=== PATIENT | male | born 2000 | race Two or more races ===

== ENCOUNTER 2022-02-09 06:10 | Emergency (ER) | payer BC, OTHER ==
[~2022-02-09] VITALS: Ht 170.2 cm; Wt 77.1 kg
[2022-02-09] MEDS ORDERED: ONDANSETRON 4 MG TAB.RAPDIS SL ONE (06:30)
[2022-02-09] MEDS ORDERED: ONDANSETRON 4 MG TAB.RAPDIS ONE (06:34)
--- NOTE | 2022-02-09 06:39 | NUR ---
[id number] C/O N/V X ONE NIGHT AFTER EATING [employer] DAVE. PT AWAKE AND ALERT BREATHING EVEN AND UNLABORED. ALL V/S WNL.
--- NOTE | 2022-02-09 06:40 | NUR ---
DR. LAW MARCOS AT PT'S BEDSIDE
[2022-02-09] MEDS ORDERED: ONDANSETRON HCL/PF 4 MG/2 ML VIAL ONE (06:50)
[2022-02-09] MEDS ORDERED: KETOROLAC TROMETHAMINE 15 MG/ML VIAL ONE (06:50)
--- NOTE | 2022-02-09 06:58 | NUR ---
DRUG ENFORCEMENT AGENT AT PT'S BEDSIDE
[2022-02-09] MEDS ORDERED: KETOROLAC TROMETHAMINE INJ 30 MG/ML VIAL IV ONE (07:00)
[2022-02-09] MEDS ORDERED: ONDANSETRON HCL/PF 4 MG/2 ML VIAL IVP ONE (07:00)
[2022-02-09] MEDS ORDERED: IV NS 0.9% 1,000 ML BAG IV ONE (07:00)
[2022-02-09 07:01] LABS: BASOPHILS % (AUTO) 0.2 % (0.0-2.0); EOSINOPHILS % (AUTO) 0.1 % (0.0-6.0); HEMATOCRIT 45 % (39-51); HEMOGLOBIN 15.4 g/dL (13.5-17.5); LYMPHOCYTES # (AUTO) 0.4 K/uL (0.8-4.8); LYMPHOCYTES % (AUTO) 2.3 % (20.0-44.0); MEAN CORPUSCULAR HGB CONC 34 g/dl (31.0-36.0); MEAN CORPUSCULAR VOLUME 88 fL (80-96); MONOCYTES # (AUTO) 0.5 K/uL (0.1-1.30); MONOCYTES % (AUTO) 2.8 % (2.0-12.0); NEUTROPHILS # (AUTO) 15.9 K/uL (1.8-8.9); NEUTROPHILS % (AUTO) 94.6 % (43.0-81.0); PLATELET COUNT (AUTO) 279 K/uL (150-450); RED BLOOD CELL COUNT(AUTO) 5.17 MIL/uL (4.5-6.0); WHITE BLOOD COUNT (AUTO) 16.8 K/uL (4.3-11.0)
--- NOTE | 2022-02-09 07:06 | NUR ---
18G RAC ESTABLOSHED BLOOD DRAWN AND SENT TO LAB
[2022-02-09] MEDS ORDERED: IOHEXOL-300 100 ML VIAL IV ONE (07:08)
[2022-02-09] MEDS ORDERED: IV NS 0.9% 250 ML IV ONE (07:08)
[2022-02-09] MEDS ORDERED: CT SWABBABLE VALVE TRANS SET 1 EA INFUS.SET MC ONE (07:08)
--- NOTE | 2022-02-09 07:09 | NUR ---
PT TAKEN TO CT VIA LEONID
[2022-02-09 07:17] LABS: CALCIUM, SERUM 9.4 mg/dL (8.5-10.1); POTASSIUM 3.9 mmol/L (3.5-5.1)
--- NOTE | 2022-02-09 07:18 | NUR ---
PT RETURNED TO ER BED [address]
[2022-02-09 07:23] LABS: ALBUMIN 4.5 g/dL (3.4-5.0); BILIRUBIN,DIRECT 0.3 mg/dL (0.0-0.2); BILIRUBIN,TOTAL 1.3 mg/dL (0.2-1.0)
[2022-02-09] MEDS ORDERED: ONDA4TAB11 PO (08:02)
[2022-02-09 08:12] VITALS: BP 110/66
--- NOTE | 2022-02-09 08:12 | NUR ---
Patient discharged to home in stable condition. Written and verbal after care instructions given. Patient verbalizes understanding of instruction.IV removed. Catheter intact and site benign. Pressure and 4x4 applied to site. No bleeding noted.
== END 2022-02-09 08:12 | disposition home or self-care (01) ==
LOC: ER 06:11
DX: K29.70 Gastritis, unspecified, without bleeding (principal); A05.9 Bacterial foodborne intoxication, unspecified
CPT/HCPCS: 99285; 74177; 96374; 96361; 96375; 85025; 80048; 83690; 80076; 36415; J2405; J7030; J7050; Q0162; Q9967; J1885